=== PATIENT | male | born 1985 | race Two or more races ===

== ENCOUNTER 2023-09-03 06:33 | Emergency (ER) | payer OTHER ==
[2023-09-03 06:45] VITALS: BMI 30.1
[2023-09-03 08:31] VITALS: BP 127/83; PULSE 81; RESP 16; TEMP 98.2
== END 2023-09-03 08:39 | disposition home or self-care (01) ==
LOC: JER 06:33
DX: K59.00 Constipation, unspecified (principal); K92.1 Melena
CPT/HCPCS: 99283-25